=== PATIENT | female | born 1975 | race African-American/Black ===

== ENCOUNTER 2018-04-13 21:49 | Inpatient (IN) | payer SELFPAY ==
[~2018-04-13] VITALS: Ht 160 cm; Wt 117.9 kg
[2018-04-13] MEDS ORDERED: MORPHINE SULFATE 4 MG/ML CPJ (NOT FOR IM USE) IV STA (22:34)
[2018-04-13] MEDS ORDERED: SODIUM CHLORIDE 0.9% 1,000 ML IV ONE (22:34)
[2018-04-13] MEDS ORDERED: ONDANSETRON HCL 4MG/2ML INJ IV STA (22:34)
[2018-04-13] MEDS ORDERED: LORAZEPAM 2MG/ML CPJ IV ONE (22:45)
[2018-04-13 23:29] LABS: BASOPHILS % 0.3 % (0.0-2.0); EOSINOPHILS % 3.4 % (0.0-5.0); HEMATOCRIT. 39.7 % (36.0-48.0); HEMOGLOBIN. 12.6 g/dL (12.0-16.0); LYMPHOCYTES % 23.9 % (20.0-50.0); MEAN CORPUSCULAR HEMOGLOBIN 24.5 pg (28.0-32.0); MEAN CORPUSCULAR VOLUME 77.1 fL (81.0-99.0); MONOCYTES % 8.4 % (2.0-8.0); PLATELET 295 x1000/uL (130-400); RED BLOOD CELL COUNT 5.14 mill/uL (4.2-5.4); RED CELL DISTRIBUTION WIDTH 17.9 % (11.6-14.6)
[2018-04-13 23:36] LABS: CHLORIDE 106 mEq/L (98-107)
[2018-04-13 23:51] LABS: HCG SCREEN NEGATIVE
[2018-04-14] MEDS ORDERED: MORPHINE SULFATE 4 MG/ML CPJ (NOT FOR IM USE) IV ONE
[2018-04-14] MEDS ORDERED: MINERAL OIL 10 ML VIAL MC ONE (01:37)
[2018-04-14] MEDS ORDERED: SKIN ADHESIVE 0.7 GM EA TOP ONE (01:37)
[2018-04-14] MEDS ORDERED: BUPIVACAINE HCL 0.5% (5MG/ML) 50ML ONE (01:38)
[2018-04-14] MEDS ORDERED: ROCURONIUM BROMIDE 10MG/ML VIAL 5ML IV ONE (02:11)
[2018-04-14] MEDS ORDERED: MIDAZOLAM HCL 2 MG/2 ML VIAL ONE (02:11)
[2018-04-14] MEDS ORDERED: PROPOFOL 200MG/20ML VIAL IV ONE ×2 (02:11→02:27)
[2018-04-14] MEDS ORDERED: FENTANYL CITRATE/PF 50MCG/ML 5ML VIAL ONE (02:11)
[2018-04-14] MEDS ORDERED: SUCCINYLCHOLINE CHLORIDE 200MG/10ML IV ONE (02:12)
[2018-04-14] MEDS ORDERED: LIDOCAINE HCL/PF 1% 10 MG/ML 5ML VIAL ONE (02:12)
[2018-04-14] MEDS ORDERED: MORPHINE SULFATE 2 MG/ML CPJ (NOT FOR IM USE) IV PRN (02:15)
[2018-04-14] MEDS ORDERED: HYDROCODONE/ACETAMINOPHEN 5/325MG TABLET PO PRN ×2 (02:15)
[2018-04-14] MEDS ORDERED: ACETAMINOPHEN 325MG TABLET PO PRN (02:15)
[2018-04-14] MEDS ORDERED: LABETALOL 5MG/ML SYR 20 MG/4 ML SYRINGE IV PRN (02:15)
[2018-04-14] MEDS ORDERED: ONDANSETRON HCL 4MG/2ML INJ IV PRN ×2 (02:15)
[2018-04-14] MEDS ORDERED: MEPERIDINE HCL/PF 25MG/ML CPJ IV PRN (02:15)
[2018-04-14] MEDS ORDERED: HYDROMORPHONE HCL/PF 2MG/ML CPJ IV PRN (02:15)
[2018-04-14] MEDS ORDERED: ALBUTEROL 90MCG/PUFF 17GM INHALER INH ONE (02:22)
[2018-04-14 02:51] LABS: CLARITY URINE CLEAR (CLEAR); COLOR URINE YELLOW (YELLOW); KETONES URINE TRACE (NEGATIVE); LEUKOCYTE ESTERASE URINE NEGATIVE (NEGATIVE); NITRITE URINE NEGATIVE (NEGATIVE); OCCULT BLOOD URINE NEGATIVE (NEGATIVE); PROTEIN URINE 1+ (NEGATIVE); SPECIFIC GRAVITY URINE 1.028 (1.005-1.030); UROBILINOGEN URINE 0.2 E.U./dL (0.2-1.0)
[2018-04-14] MEDS ORDERED: DEXAMETHASONE 4MG/ML 1ML VIAL ONE (02:55)
[2018-04-14] MEDS ORDERED: HYDROMORPHONE HCL/PF 2MG/ML (OR) ONE (02:58)
[2018-04-14] MEDS ORDERED: GLYCOPYRROLATE 0.2 MG/ML 2ML VIAL ONE (03:33)
[2018-04-14] MEDS ORDERED: NEOSTIGMINE METHYLSULFATE 1MG/ML 10 ML VIAL ONE (03:33)
[2018-04-14 04:00] VITALS: BP 148/89
[2018-04-14] MEDS ORDERED: IPRATROPIUM/ALBUTEROL 0.5-3(2.5)MG/3ML NEB HHN PRN (05:30)
[2018-04-14] MEDS ORDERED: HYDRALAZINE 10 MG in SODIUM CHLORIDE 0.9% 49.5 ML IV PRN (05:30)
[2018-04-14] MEDS: SODIUM CHLORIDE 0.9% INJ 3ML FLUSH IVF SCH ×3 (06:00→22:00)
[2018-04-14 08:00] VITALS: BP 170/80
[2018-04-14] MEDS ORDERED: CLONIDINE HCL 0.2MG/24HR PATCH TD SCH (08:00)
[2018-04-14 09:00] VITALS: BP 170/80
[2018-04-14] MEDS: LEVOFLOXACIN 500MG PREMIX 100 ML IV SCH (09:09)
[2018-04-14] MEDS: DEXT 5%/0.45% NACL KCL 20MEQ/L 1,000 ML IV SCH ×2 (09:16→15:50)
[2018-04-14] MEDS ORDERED: NICOTINE 14MG PATCH TD SCH (11:15)
[2018-04-14 12:00] VITALS: BP 120/61
[2018-04-14] MEDS: AMLODIPINE 5MG TABLET PO SCH (14:58)
[2018-04-14] MEDS ORDERED: MONT10TA21 MT (15:43)
[2018-04-14] MEDS ORDERED: ATOR20TA65 MT (15:45)
[2018-04-14] MEDS ORDERED: FLUT1DIS2 INH (15:55)
[2018-04-14 16:00] VITALS: BP 118/59
[2018-04-14] MEDS ORDERED: LEVO75TA MT (16:16)
[2018-04-14] MEDS ORDERED: MONTELUKAST SODIUM 10MG TABLET PO SCH (17:00)
[2018-04-14] MEDS: MORPHINE SULFATE 4 MG/ML CPJ (NOT FOR IM USE) IV PRN (18:32)
[2018-04-14 19:56] VITALS: BP 125/70
[2018-04-15] VITALS: BP 130/90
[2018-04-15 04:00] VITALS: BP 138/69
[2018-04-15] MEDS: MORPHINE SULFATE 4 MG/ML CPJ (NOT FOR IM USE) IV PRN (06:08)
[2018-04-15] MEDS: SODIUM CHLORIDE 0.9% INJ 3ML FLUSH IVF SCH ×2 (06:59→13:56)
[2018-04-15] MEDS: DEXT 5%/0.45% NACL KCL 20MEQ/L 1,000 ML IV SCH ×2 (07:14→11:00)
[2018-04-15 07:16] LABS: BASOPHILS % 0.4 % (0.0-2.0); EOSINOPHILS % 0.7 % (0.0-5.0); HEMATOCRIT. 33.5 % (36.0-48.0); HEMOGLOBIN. 10.8 g/dL (12.0-16.0); LYMPHOCYTES % 16.4 % (20.0-50.0); MEAN CORPUSCULAR HEMOGLOBIN 24.7 pg (28.0-32.0); MEAN CORPUSCULAR VOLUME 76.7 fL (81.0-99.0); MEAN PLATELET VOLUME 8.1 fl (7.4-10.4); NEUTROPHILS % 70.5 % (40.0-76.0); PLATELET 265 x1000/uL (130-400); RED BLOOD CELL COUNT 4.37 mill/uL (4.2-5.4); RED CELL DISTRIBUTION WIDTH 17.4 % (11.6-14.6)
[2018-04-15 07:22] LABS: CHLORIDE 107 mEq/L (98-107)
[2018-04-15 08:00] VITALS: BP 129/70
[2018-04-15] MEDS: LEVOFLOXACIN 500MG PREMIX 100 ML IV SCH (08:42)
[2018-04-15] MEDS: AMLODIPINE 5MG TABLET PO SCH (08:43)
[2018-04-15] MEDS ORDERED: CALCIUM CARBONATE 1250MG TABLET (500MG ELEMENTAL CALCIUM) PO NR (08:45)
[2018-04-15] MEDS ORDERED: NICOTINE 14MG PATCH TD SCH (09:00)
[2018-04-15 12:00] VITALS: BP 123/63
[2018-04-15 12:27] VITALS: BP 123/63
[2018-04-15 16:00] VITALS: BP 123/62
[2018-04-16] MEDS ORDERED: LEVOFLOXACIN 500MG TABLET PO SCH (11:00)
== END 2018-04-15 16:15 | disposition home or self-care (01) | DRG 227 ==
LOC: ER 21:49 → 6EST 04-14 00:37 → EDBEDREQ 04-14 00:40 → EDBEDREQSVC 04-14 00:40 → EDBEDREQDT 04-14 00:40 → EDBEDREQTM 04-14 00:40 → ENRESERV 04-14 01:19
PROVIDERS: ADMIT Internal Medicine Geriatric Medicine; ATTEND Internal Medicine Geriatric Medicine
PROC: 0WUF0JZ Supplement Abdominal Wall with Synthetic Substitute, Open Approach (ICD-10-PCS; principal; 2018-04-14 02:00)
DX: K43.6 Other and unspecified ventral hernia with obstruction, without gangrene (principal); E66.01 Morbid (severe) obesity due to excess calories; Z68.42 Body mass index [BMI] 45.0-49.9, adult; J45.901 Unspecified asthma with (acute) exacerbation; I10 Essential (primary) hypertension; Z72.0 Tobacco use
CPT/HCPCS: 36415; 71045; 80048; 80053; 81003; 83605; 83690; 84484; 84703; 85025; 85610; 87040; 87086; 93005; 94640; 96374; 96375; 96376; 99285; C1781; G0482; J0330; J1100; J1170; J1956; J2060; J2250; J2270; J2405; J2704; J2710; J3010; J3490; J7030; J7620